=== PATIENT | male | born 1980 | race Caucasian/White ===

== ENCOUNTER 2018-10-31 07:21 | Outpatient (CLI) | payer OTHER ==
[~2018-10-31] VITALS: Ht 180.3 cm; Wt 104.5 kg
[2018-10-31] MEDS ORDERED: MICARDIS20 MG PO (07:39)
[2018-10-31 07:46] VITALS: BP 146/95; PULSE 53; TEMP 98
[2018-10-31] MEDS ORDERED: CEPHALEXIN500 M1 PO (09:01)
[2018-10-31] MEDS ORDERED: ASPIRIN E.C. 8181 MG PO (09:02)
--- NOTE | 2018-10-31 09:30 | NUR ---
discharge teaching and programing done by tech/[employer]. pt has dressing over site, clean and dry. reviewed discharge inst. with pt on site care, new RX to strip picker and appts made with verbal understanding. Discharged ambulatory
== END 2018-10-31 11:00 | disposition home or self-care (01) ==
LOC: COL.CAR 07:21
DX: I48.0 Paroxysmal atrial fibrillation (principal); I10 Essential (primary) hypertension; Z82.49 Family history of ischemic heart disease and other diseases of the circulatory system
CPT/HCPCS: C1764